=== PATIENT | male | born 1990 | race Caucasian/White ===

== ENCOUNTER 2018-03-15 21:42 | Emergency (ER) | payer MEDICAID ==
[~2018-03-15] VITALS: Ht 167.6 cm; Wt 121.7 kg
[2018-03-15 21:55] VITALS: Ht 167.6 cm; Wt 121.7 kg
[2018-03-15 23:10] VITALS: BP 138/70
== END 2018-03-15 23:10 | disposition home or self-care (01) ==
LOC: ED 21:42
DX: H66.93 Otitis media, unspecified, bilateral (principal); H60.91 Unspecified otitis externa, right ear